=== PATIENT | male | born 1950 | race Caucasian/White ===

== ENCOUNTER 2022-11-09 12:03 | Outpatient (CLI) | payer MEDICARE, BC | END 2022-11-09 23:59 | disposition home or self-care (01) | LOC: US 12:03 | PROVIDERS: ATTEND Pain Medicine Interventional Pain Medicine | DX: M54.2 Cervicalgia (principal); M51.26 Other intervertebral disc displacement, lumbar region; M48.061 Spinal stenosis, lumbar region without neurogenic claudication; M47.899 Other spondylosis, site unspecified; M62.838 Other muscle spasm; M43.10 Spondylolisthesis, site unspecified ==